=== PATIENT | male | born 1955 | race Hispanic/Latino ===

== ENCOUNTER 2024-10-03 08:58 | Day surgery (SDC) | payer OTHER ==
[2024-09-30 11:12] LABS: BASOPHILS # (AUTO) 0.04 K/uL (0.00-0.20); BASOPHILS % (AUTO) 0.6 % (0.0-5.0); EOSINOPHILS # (AUTO) 0.35 K/uL (0.00-0.70); EOSINOPHILS % (AUTO) 5.3 % (0.0-8.0); HEMATOCRIT 43.7 % (42-54); IMMATURE GRANULOCYTE ABSOLUTE 0.01 K/uL (0-1); LYMPHOCYTES # (AUTO) 1.9 K/uL (1.0-4.8); LYMPHOCYTES % (AUTO) 28.7 % (21.0-51.0); MEAN CORPUSCULAR HEMOGLOBIN 31.3 pg (27.0-33.0); MEAN CORPUSCULAR HGB CONC 32.3 g/dL (32.0-36.0); MEAN CORPUSCULAR VOLUME 96.9 fL (79-99); MONOCYTES # (AUTO) 0.9 K/uL (0.1-1.0); MONOCYTES % (AUTO) 13.4 % (3.0-13.0); NEUTROPHILS # (AUTO) 3.4 K/uL (1.8-7.7); NEUTROPHILS % (AUTO) 51.8 % (40.0-77.0); PLATELET COUNT (AUTO) 230 K/uL (130-400); RED BLOOD CELL COUNT(AUTO) 4.51 MIL/uL (4.50-6.20); RED CELL DISTRIBUTION WIDTH 13.6 % (11.0-15.5); WHITE BLOOD COUNT (AUTO) 6.6 K/uL (4.8-10.8)
--- NOTE | 2024-09-30 11:20 | EKG ---
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
[2024-09-30 11:24] LABS: CREATININE 0.9 mg/dL (0.5-1.3); POTASSIUM 3.9 mmol/L (3.5-5.1)
[2024-09-30 11:47] VITALS: BP 144/71; PULSE 58; RESP 18; TEMP 97.9
[2024-09-30 11:51] LABS: B-TYPE NATRIURETIC PEPTIDE 29 pg/mL (0-100)
[2024-09-30 11:56] LABS: APPEARANCE,URINE CLEAR (CLEAR); BILIRUBIN,URINE NEGATIVE (NEGATIVE); COLOR,URINE COLORLESS (YELLOW); GLUCOSE, URINE (UA) NEGATIVE (NEGATIVE); KETONES,URINE NEGATIVE (NEGATIVE); LEUKOCYTE ESTERASE ,URINE NEGATIVE Leu/uL (NEGATIVE); NITRATE,URINE NEGATIVE (NEGATIVE); OCCULT BLOOD,URINE NEGATIVE (NEGATIVE); PH,URINE 5.5 (5.0-8.0); PROTEIN,URINE NEGATIVE (NEGATIVE); UROBILINOGEN,URINE 0.2 mg/dL (0.2-1.0)
[2024-09-30 11:57] LABS: ADD UA MICROSCOPIC NO
[2024-09-30 11:58] LABS: INR 1.01 (0.85-1.15); PROTHROMBIN TIME 10.9 SEC (9.6-11.6)
[2024-09-30 12:00] LABS: PARTIAL THROMBOPLASTIN TIME 28.5 SEC (26.3-35.5)
--- NOTE | 2024-09-30 13:32 | HMCIMG ---
CHEST 1VW HISTORY: Re-op COMPARISON: None FINDINGS: A frontal projection of the chest was obtained. No acute pulmonary infiltrates is seen. The heart is normal in size. Prominent interstitial markings are seen. No evidence of aortic calcification is seen. IMPRESSION: 1. No acute pulmonary infiltrate is seen.
[~2024-10-03] VITALS: Ht 172.7 cm; Wt 91.5 kg
[2024-10-03] VITALS (8 sets, daily range): BP systolic 136–158; BP diastolic 73–81; PULSE 53–72; RESP 14–17; TEMP 97.4–98.1
[~2024-10-03 08:58] MED LIST: AMLO-257 PO; ASPI-1443 PO; ATOR40TA71 PO; HYDR25TA PO; LOSA100T59 PO
[2024-10-03] MEDS: 0.9%NACL 1000ML 1,000 ML IV SCH (10:19)
[2024-10-03] MEDS ORDERED: IOHEXOL-350 75 ML VIAL IV ONE (15:09)
[2024-10-03] MEDS ORDERED: MIDAZOLAM HCL 1 MG/ML 2ML VIAL ONE ×2 (15:09→15:21)
[2024-10-03] MEDS ORDERED: LIDOCAINE HCL 400MG/20ML VIAL ONE (15:09)
[2024-10-03] MEDS ORDERED: HEParin 10,000 UNIT/10ML (1,000 UNIT/ML) VIAL ONE (15:09)
[2024-10-03] MEDS ORDERED: IOHEXOL 350 MG/ML 100ML INFUS..BTL IV ONE (15:09)
[2024-10-03] MEDS ORDERED: MEPERIDINE-PF 25 MG/ML SYG ONE ×2 (15:09→15:21)
[2024-10-03] MEDS ORDERED: niCARDIpine 25MG INJ IV ONE (15:09)
[2024-10-03] MEDS ORDERED: HEParin-NS 1,000 UNIT/500 ML 1,000 ML IV ONE (15:10)
[2024-10-03] MEDS ORDERED: NITROGLYCERIN 50MG VIAL ONE (15:10)
[2024-10-03] MEDS ORDERED: ATROPINE 1MG SYG IVP ONE (15:24)
[2024-10-03] MEDS ORDERED: cloPIDOgrel 300MG TAB ONE (16:11)
[2024-10-03] MEDS ORDERED: 0.9%NACL 1000ML 1,000 ML IV SCH (16:30)
--- NOTE | 2024-10-03 17:04 | CCATH ---
PROCEDURE NOTE PROCEDURES: * Left heart catheterization. * Selective diagnostic right and left coronary arteriogram. * Angioplasty and stent placement in the obtuse marginal branch of the circumflex. * Balloon angioplasty and stenting of the RCA in the mid segment and the proximal segment. INDICATIONS: * Abnormal exercise tolerance test. * High calcium score. * Abnormal coronary CT angiography. COMPLICATIONS: None. TOTAL CONTRAST: 95 mL. APPROACH: Right radial approach. DESCRIPTION OF PROCEDURE: The patient was taken to the cardiac catheterization lab after appropriate operative consents were signed. He was prepped and draped in the usual fashion. After conscious sedation was administered, the right radial artery was accessed utilizing access needle and a radial slender sheath was advanced in retrograde fashion over an indwelling wire. Radial cocktail was administered. A TIG 4 catheter was then advanced and placed in the left ventricular cavity over an indwelling wire. Left ventricular end-diastolic pressure measurement was obtained. Ventriculography was deferred. There was no significant aortic stenosis by pullback with no significant gradient. At this point, the catheter was withdrawn and engaged in the ostium of the right coronary artery. Imaging was obtained in multiplane. The right coronary artery was a large vessel that was noted to have severe stenosis in the mid segment 80% with a proximal 70% lesion. It was also noted that the catheter dampening ensued with cannulation of the right coronary artery. Right coronary gave rise to a large PDA and a large branching PLVB system. The catheter was withdrawn and engaged in the ostium of the left main. This was imaged in multiplane. The left main was free of significant stenosis. It was noted to have no significant disease and bifurcated into LAD and circumflex. The LAD was a moderately large vessel that gave rise to a tiny first diagonal. The LAD had a 40% lesion proximal to mid segment. Circumflex was a moderately sized vessel that gave rise to a large branching OM and ongoing small circ. The branching OM had a 95% lesion just proximal to the bifurcation of the superior and inferior branch. At this point, given the patient's abnormal stress test and his findings, we elected to proceed with angioplasty and stenting of the RCA and the OM. XB 3.5 guide 6-[place] was selected and advanced over an indwelling wire and engaged in ostium of the left main. A 0.014 wire was advanced and positioned into the distal superior OM branch. We then were able to advance a 3.0 x 18 Roby Palmer stent, which was inflated to 12 atmospheres at 3.05 mm size, jailing the inferior branch of the obtuse marginal. Both branches were widely patent with excellent flow at the end of the intervention for the circumflex marginal. The catheter was withdrawn. The FR4 6-[place] guide was selected and engaged in the ostium of the right coronary artery. A 0.014 wire was advanced to position the distal RCA circulation. The mid RCA lesion was treated with a Roby Palmer 4.0 x 30 stent to 12 atmospheres. This was followed by placement of an overlapping 4.0 x 34 from the mid to the proximal RCA covering the lesion. This was deployed to 12 atmospheres as well. The final angiographic result was good. At this point, the procedure was completed, the catheter was withdrawn over an indwelling wire. The radial band was applied. 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 FINAL IMPRESSION: * Severe coronary artery disease. * Abnormal stress test. * Abnormal coronary CTA. * Successful balloon angioplasty and stent placement of the OM and the mid and proximal RCA as outlined above. PLAN: Continue medical management. TID: [id number] RECEIPT: [id number]
--- NOTE | 2024-10-03 18:45 | NUR ---
VASBAND REMOVED DRESSED WITH STERILE GAUZE AND TEGADERM. SITE ASYMPTOMATIC
--- NOTE | 2024-10-03 19:42 | NUR ---
BOTH PT AND SPOUSE GIVEN VERBAL AND WRITTEN DISCHARGE INSTRUCTIONS IV REMOVED SITE ASYMPTOMATIC.
== END 2024-10-03 19:47 | disposition home or self-care (01) ==
LOC: DAH 08:58
PROVIDERS: ATTEND Internal Medicine Cardiovascular Disease
DX: I25.10 Atherosclerotic heart disease of native coronary artery without angina pectoris (principal); I25.84 Coronary atherosclerosis due to calcified coronary lesion; R94.39 Abnormal result of other cardiovascular function study; R93.1 Abnormal findings on diagnostic imaging of heart and coronary circulation; I10 Essential (primary) hypertension; E78.2 Mixed hyperlipidemia; Z95.5 Presence of coronary angioplasty implant and graft; Z79.01 Long term (current) use of anticoagulants; Z79.82 Long term (current) use of aspirin; Z79.899 Other long term (current) drug therapy
CPT/HCPCS: 80048; 83880; 85025; 85610; 85730; 81003; 36415; 71045; 93005; 93458; 85347; A4223 ×2; Q9965; C1769 ×2; C1887 ×2; C1874 ×3; A4649; C1894; J3490 ×3; J7030; J1644 ×2; J2250 ×2; J2175 ×2; Q9967 ×2; A4215; A4222; A4221; A4663; A4216; A4606; C9600 ×2; 96360; 96361; 99156; 99157; J0461